=== PATIENT | female | born 1930 ===

== ENCOUNTER 2017-01-13 15:00 | Inpatient (IN) | payer MEDICARE, OTHER ==
[2017-01-13 15:00] VITALS: BMI 36.6
--- NOTE | 2017-01-13 15:13 | ED PDOC ---
HPI: General Adult Time Seen by Provider: 01/13/17 15:09 Chief Complaint (Nursing): Palpitations Chief Complaint (Provider): shortness of breath History Per: Patient History/Exam Limitations: no limitations Additional Complaint(s): 86yo female comes from Dr. Sharp's office w/ palpitations & shortness of breath. Patient has been complaining of symptoms for several days. Also reports 1-2 days of leg swelling and is feeling lightheaded today. No chest pain or fever. Past Medical History Reviewed: Historical Data, Nursing Documentation, Vital Signs Vital Signs: Last Vital Signs Temp 98.1 F 01/15/17 15:40 Pulse 89 01/15/17 15:40 Resp 20 01/15/17 15:40 BP 114/77 01/15/17 15:40 Pulse Ox 97 01/15/17 15:40 - Medical History PMH: Anxiety, Arthritis, Asthma (ON ADVAIR AT HOME ( UPDATED )), Atrial Fibrillation, Bronchitis, CAD, Cardia Arrhythmia (tachycardia), CHF, COPD, Dementia, Depression, HTN, Hyperlipidemia, Pneumonia, TIA Denies: Pulmonary Embolism (Helical ct done which excluded PE), Chronic Kidney Disease Other PMH: peripheral vascular disease, osteoarthritis, carotid artery disease - Surgical History Other surgeries: hysterctomy, oophorectomy - Family History Family History: States: Unknown Family Hx - Social History Current smoker - smoking cessation education provided: No - Home Medications Home Medications: Ambulatory Orders Medication Instructions Recorded Carboxymethylcellulose Sodium 1 drop EACHEYE QID 01/13/17 [Thera Tears] Olopatadine HCl [Pataday] 1 drop EACHEYE DAILY PRN 01/13/17 Valsartan [Diovan] 160 mg PO DAILY 01/13/17 - Allergies Allergies/Adverse Reactions: Allergies Allergy/AdvReac Type Severity Reaction Status Date / Time Penicillins Allergy RASH Verified 01/13/17 15:02 Review of Systems ROS Statement: Except As Marked, All Systems Reviewed And Found Negative Constitutional: Negative for: Fever Cardiovascular: Positive for: Palpitations, Light Headedness. Negative for: Chest Pain Respiratory: Positive for: Shortness of Breath Physical Exam - Reviewed Nursing Documentation Reviewed: Yes Vital Signs Reviewed: Yes - Physical Exam Appears: Positive for: Well, Non-toxic, No Acute Distress Head Exam: Positive for: ATRAUMATIC, NORMAL INSPECTION, NORMOCEPHALIC Skin: Positive for: Warm, Dry ENT: Positive for: Other (tacky mucous membranes) Cardiovascular/Chest: Positive for: Tachycardia (regular rhythm). Negative for : Murmur Respiratory: Positive for: Normal Breath Sounds. Negative for: Rales, Rhonchi, Wheezing, Respiratory Distress Gastrointestinal/Abdominal: Positive for: Soft. Negative for: Tenderness Extremity: Positive for: Other (1+ bilateral lower edema with kalli erythema and scaliness on skin of lower anterior tibia) - Laboratory Results Result Diagrams: 01/15/17 06:10 01/15/17 06:10 - ECG ECG: Positive for: Interpreted By Me, Viewed By Me ECG Rhythm: Positive for: Sinus Tachycardia, Nonspecific Changes (nonspecific ST abnormalities) O2 Sat by Pulse Oximetry: 99 Pulse Ox Interpretation: Normal - Critical Care Total Time (In Min): 30 Documented Critical Care: Time excludes all time spent performint seperately billable procedures Medical Decision Making Medical Decision Making: impression tachycardia differential includes acute coronary syndrome, anemia, CHF, pneumonia, PE, electrolyte abnormality, DVT. Plan: -EKG -US Bilateral Lower Extremities -CXR -Labs -Blood Culture -reassess Troponin, didimer and bnp elevated. DW Dr Sharp PMD and [employer] Supervisor. Requests Hospitalist admission and Dr Chavez for inpatient consult. Pt will be admitted for ACS, pending CT chest Pt's extensive med list provided by Dr Sharp reviewed with patient. She reports she only takes 2 medications every day. According to pt's pharmacy she has not filled several of her BP medications, including beta paramjit, for a few months. Lovenox ordered as she would benefit whether PE or ACS EXAM: CT Angiography Chest With Intravenous Contrast CLINICAL HISTORY: 86 years old, female; Signs and symptoms; Shortness of breath; Additional info: SOB tachycardia TECHNIQUE: Axial computed tomographic angiography images of the chest with intravenous contrast using pulmonary embolism protocol. This CT exam was performed using one or more of the following dose reduction techniques: automated exposure control, adjustment of the mA and/or kV according to patient size, and/or use of iterative reconstruction technique. MIP reconstructed images were created and reviewed. Coronal and sagittal reformatted images were created and reviewed. CONTRAST: 90 mL of [id number] administered intravenously. COMPARISON: No relevant prior studies available. FINDINGS: Limitations: Motion artifact - mild. Pulmonary arteries: Mild enlargement of pulmonary trunk. No definite pulmonary embolism. Aorta: Minimal atherosclerotic disease. No aortic aneurysm. Lungs: Minimal peripheral atelectasis/scarring. No consolidation. Pleural space: No significant effusion. No pneumothorax. Heart: Mild cardiomegaly. No significant pericardial effusion. Bones/joints: Degenerative changes of spine. No acute fracture. Soft tissues: Unremarkable. Lymph nodes: No pathologically enlarged lymph nodes. Upper abdomen: 12 x 7 cm cystic lesion with midline upper abdomen about the pancreas, incompletely imaged. IMPRESSION: 1. No definite CT evidence of pulmonary embolism. 2. Pancreatic lesion, indeterminate. Recommend MRI. 3. Incidental/non-acute findings are described above. DW Dr Jacome Hospitalist admitting for pt's PMD. Dr Chavez paged at 930p and 1020p. Dr Jacome made aware there has been no callback yet. Disposition - Clinical Impression Clinical Impression: NSTEMI (non-ST elevated myocardial infarction) Discussed With Dr.: Tarah Jacome Doctor Will See Patient In The: ED Counseled Patient/Family Regarding: Studies Performed, Diagnosis - Disposition Disposition Time: 15:15 Condition: GUARDED - Pt Status Changed To: Hospital Disposition Of: Inpatient - Admit Certification Admit to Inpatient:: After my assessment, the patient will require hospitalization for at least two midnights. This is because of the severity of symptoms shown, intensity of services needed, and/or the medical risk in this patient being treated as an outpatient. - POA Present On Arrival: None Additional Comments - Additional Comments Additional Comments: Scribe Attestation: Documented by Andrei Siddiqui acting as a scribe for Caren Kim MD. Provider Scribe Attestation: All medical record entries made by the Scribe were at my direction and personally dictated by me. I have reviewed the chart and agree that the record accurately reflects my personal performance of the history, physical exam, medical decision making, and the department course for this patient. I have also personally directed, reviewed, and agree with the discharge instructions and disposition.
--- NOTE | 2017-01-13 16:12 | RAD ---
HISTORY: Shortness of breath. Portable study 15:35. COMPARISON: No prior. FINDINGS: LUNGS: No active pulmonary disease. PLEURA: No significant pleural effusion identified, no pneumothorax apparent. CARDIOVASCULAR: Cardiomegaly. No evidence of acute, significant cardiovascular disease. OSSEOUS STRUCTURES: No significant abnormalities. VISUALIZED UPPER ABDOMEN: Normal. OTHER FINDINGS: None. IMPRESSION: No active disease.
[2017-01-13 16:37] LABS: BASO % 0.5 % (0.0-2.0); EOS # 0.6 K/uL (0.0-0.7); EOS % 6.4 % (0.0-4.0); HEMATOCRIT 39.7 % (34.0-47.0); LYMPH % 23.3 % (20.0-40.0); MEAN CELL VOLUME 83.2 fl (81.0-99.0); MEAN CORPUSCULAR HEMOGLOBIN 27.7 pg (27.0-31.0); MEAN CORPUSCULAR HGB CONC 33.3 g/dL (33.0-37.0); MEAN PLATELET VOLUME 10.2 fl (7.2-11.7); MONO # 0.7 K/uL (0.0-0.8); MONO % 8.4 % (0.0-10.0); NEUT # 5.3 K/uL (1.8-7.0); NEUT % 61.4 % (50.0-75.0); RED CELL DISTRIBUTION WIDTH 14.9 % (11.5-14.5); WHITE BLOOD COUNT 8.7 K/uL (4.8-10.8)
[2017-01-13 16:48] LABS: ALKALINE PHOSPHATASE 116 U/L (38-126); ALT/SGPT 29 U/L (9-52); AST/SGOT 29 U/L (14-36); BILIRUBIN,TOTAL 0.6 mg/dl (0.2-1.3); BLOOD UREA NITROGEN 17 mg/dl (7-17); CALCIUM 9.3 mg/dL (8.4-10.2); CARBON DIOXIDE 28 mmol/L (22-30); CHLORIDE 103 mmol/L (98-107); GFR AFRICAN-AMERICAN > 60; GLUCOSE,RANDOM 107 mg/dL (65-105); MAGNESIUM 1.9 MG/DL (1.6-2.3); PHOSPHOROUS 3.5 mg/dl (2.5-4.5); POTASSIUM 4.4 MMOL/L (3.6-5.0); SODIUM 136 mmol/l (132-148); TOTAL PROTEIN 6.8 G/DL (6.3-8.2)
[2017-01-13 17:11] LABS: PARTIAL THROMBOPLASTIN TIME 27.8 SECONDS (23.3-32.5)
[2017-01-13 17:16] LABS: THYROID STIMULATING HORMONE 2.65 mIU/ML (0.46-4.68)
--- NOTE | 2017-01-13 17:35 | US ---
Bilateral lower extremity ultrasound. Indication: Leg swelling, tachycardia Technique: Duplex ultrasound evaluation of the bilateral lower extremities Comparison: None available Findings: Bilateral lower extremity edema. There is normal flow, compressibility, and augmentation of the bilateral common femoral, femoral, and popliteal veins. The bilateral posterior tibial veins appear patent. 5.9 x 1.7 x 5.3 cm anechoic collection which contains internal septations within the right popliteal fossa, likely complex García's cyst. Incidental note is made of prominent nonspecific left inguinal lymph node with fatty hilum. Impression: Bilateral lower extremity edema. No evidence of deep venous thrombosis in the bilateral lower extremities. 5.9 x 1.7 x 5.3 cm anechoic collection which contains internal septations within the right popliteal fossa, likely complex García's cyst.
[2017-01-13] MEDS ORDERED: Enoxaparin 80 mg Syringe SC ONE (20:00)
[2017-01-13] MEDS ORDERED: Sodium Chloride 0.9% 50 ML IV ONE (20:02)
[2017-01-13] MEDS ORDERED: Iodixanol 320 MG/ML 100 ML BOTTLE IV ONE (20:02)
--- NOTE | 2017-01-13 21:28 | CT ---
EXAM: CT Angiography Chest With Intravenous Contrast CLINICAL HISTORY: 86 years old, female; Signs and symptoms; Shortness of breath; Additional info: SOB tachycardia TECHNIQUE: Axial computed tomographic angiography images of the chest with intravenous contrast using pulmonary embolism protocol. This CT exam was performed using one or more of the following dose reduction techniques: automated exposure control, adjustment of the mA and/or kV according to patient size, and/or use of iterative reconstruction technique. MIP reconstructed images were created and reviewed. Coronal and sagittal reformatted images were created and reviewed. CONTRAST: 90 mL of [id number] administered intravenously. COMPARISON: No relevant prior studies available. FINDINGS: Limitations: Motion artifact - mild. Pulmonary arteries: Mild enlargement of pulmonary trunk. No definite pulmonary embolism. Aorta: Minimal atherosclerotic disease. No aortic aneurysm. Lungs: Minimal peripheral atelectasis/scarring. No consolidation. Pleural space: No significant effusion. No pneumothorax. Heart: Mild cardiomegaly. No significant pericardial effusion. Bones/joints: Degenerative changes of spine. No acute fracture. Soft tissues: Unremarkable. Lymph nodes: No pathologically enlarged lymph nodes. Upper abdomen: 12 x 7 cm cystic lesion with midline upper abdomen about the pancreas, incompletely imaged. IMPRESSION: 1. No definite CT evidence of pulmonary embolism. 2. Pancreatic lesion, indeterminate. Recommend MRI. 3. Incidental/non-acute findings are described above.
--- NOTE | 2017-01-13 21:59 | CP.PCM.HP ---
History of Present Illness - History of Present Illness History of Present Illness: CC: shortness of breath HPI: 86 year old female with uncertain PMH as she is noncompliant with medications - patient pharmacy was called, and has not refilled medications in several months. Patient states over the course of 2 weeks she has been experiencing increasing moderate to severe shortness of breath at rest and on exertion with palpitations associated with chest pressure. Patient had not seen primary for a long period of time, and during her appointment today with Dr. Berry, patient was instructed to come to the emergency room for further evaluation and care. In ER: patient continues to have mild dyspnea at rest, TROPONIN x2 elevated at .44, .53, EKG with ST/T wave changes in lateral leads compared to 2015 study. PE was ruled out via CTA and Dopplers. Discussed with ER physician, Dr. Berry called, requested Dr. Chavez consulted for Cardiology. Service called three times. ROS per HPI all other systems reviewed and negative PMH: hypertension PSH: breast excision FH: Father, 2 Brothers passed from [place] SH: denies tobacco, ETOH, IVDU MEDS: noncompliant, patient pharmacy was called, and has not refilled medications in several months ALLERGIES: PCN EXAM: GEN: WDWN, alert, cooperative HEENT: NCAT, PERRL, EOMI NECK: supple, no JVD, no lymphadenopathy CARDIAC: +S1S2 RRR LUNG: CTAB No WRR ABD: SOFT NT ND BSX4 NO MASSES NO HSM EXT: +pedal pulses, equal strength, +edema NEURO: AAOx3 SKIN warm, dry PSYCH normal mood, normal affect LABS Most Recent Lab Values WBC 8.7 K/uL (4.8-10.8) 01/13/17 16:15 RBC 4.76 Mil/uL (3.80-5.20) 01/13/17 16:15 Hgb 13.2 g/dL (12.0-16.0) 01/13/17 16:15 Hct 39.7 % (34.0-47.0) 01/13/17 16:15 MCV 83.2 fl (81.0-99.0) 01/13/17 16:15 MCH 27.7 pg (27.0-31.0) 01/13/17 16:15 MCHC 33.3 g/dL (33.0-37.0) 01/13/17 16:15 RDW 14.9 % (11.5-14.5) H 01/13/17 16:15 Plt Count 149 K/uL (130-400) 01/13/17 16:15 MPV 10.2 fl (7.2-11.7) 01/13/17 16:15 Neut % (Auto) 61.4 % (50.0-75.0) 01/13/17 16:15 Lymph % (Auto) 23.3 % (20.0-40.0) 01/13/17 16:15 [place] % (Auto) 8.4 % (0.0-10.0) 01/13/17 16:15 Eos % (Auto) 6.4 % (0.0-4.0) H 01/13/17 16:15 Baso % (Auto) 0.5 % (0.0-2.0) 01/13/17 16:15 Neut # 5.3 K/uL (1.8-7.0) 01/13/17 16:15 Lymph # 2.0 K/uL (1.0-4.3) 01/13/17 16:15 [place] # 0.7 K/uL (0.0-0.8) 01/13/17 16:15 Eos # 0.6 K/uL (0.0-0.7) 01/13/17 16:15 Baso # 0.0 K/uL (0.0-0.2) 01/13/17 16:15 PT 10.6 SECONDS (9.6-11.2) 01/13/17 16:15 INR 1.02 (0.92-1.08) 01/13/17 16:15 APTT 27.8 SECONDS (23.3-32.5) 01/13/17 16:15 D-Dimer, Quantitative 1.36 mg/L FEU (0-0.50) H 01/13/17 16:15 Sodium 136 mmol/l (132-148) 01/13/17 16:15 Potassium 4.4 MMOL/L (3.6-5.0) 01/13/17 16:15 Chloride 103 mmol/L (98-107) 01/13/17 16:15 Carbon Dioxide 28 mmol/L (22-30) 01/13/17 16:15 Anion Gap 10 (10-20) 01/13/17 16:15 BUN 17 mg/dl (7-17) 01/13/17 16:15 Creatinine 0.7 mg/dL (0.7-1.2) 01/13/17 16:15 Est GFR ( Amer) > 60 01/13/17 16:15 Est GFR (Non-Af Amer) > 60 01/13/17 16:15 Random Glucose 107 mg/dL (65-105) H 01/13/17 16:15 Lactic Acid 0.9 MMOL/L (0.7-2.1) 01/13/17 16:15 Calcium 9.3 mg/dL (8.4-10.2) 01/13/17 16:15 Phosphorus 3.5 mg/dl (2.5-4.5) 01/13/17 16:15 Magnesium 1.9 MG/DL (1.6-2.3) 01/13/17 16:15 Total Bilirubin 0.6 mg/dl (0.2-1.3) 01/13/17 16:15 AST 29 U/L (14-36) 01/13/17 16:15 ALT 29 U/L (9-52) 01/13/17 16:15 Alkaline Phosphatase 116 U/L (38-126) 01/13/17 16:15 Troponin I x2 0.44 / 0.5370 ng/mL (0.00-0.120) H* 01/13/17 23:51 NT-Pro-B Natriuret Pep 1060 pg/ml (0-900) H 01/13/17 16:15 Total Protein 6.8 G/DL (6.3-8.2) 01/13/17 16:15 Albumin 3.5 g/dL (3.5-5.0) 01/13/17 16:15 Globulin 3.4 gm/dL (2.2-3.9) 01/13/17 16:15 Albumin/Globulin Ratio 1.0 (1.0-2.1) 01/13/17 16:15 TSH 3rd Generation 2.65 mIU/ML (0.46-4.68) 01/13/17 16:15 IMAGING STUDIES PE was ruled out via CTA and Dopplers. CXR no active disease EKG EKG with ST/T wave changes in lateral leads compared to 2015 study ACTIVE MEDICATIONS Olopatadine 0.1% Opht [Patanol 0.1% Opht Soln] 1 drop OU DAILY Aspirin [Aspirin Chewable] 81 mg PO DAILY Clopidogrel [Plavix] 75 mg PO DAILY Enoxaparin [Lovenox] 80 mg SC Q12 Anticoagulation Clinical Indication: ACS (STEMI, NSTEMI, UA) Metoprolol Succinate [Toprol XL] 50 mg PO DAILY Valsartan [Diovan] 160 mg PO DAILY ASSESSMENT AND PLAN 86 year old female with uncertain PMH as she is noncompliant with medications. Patient states over the course of 2 weeks she has been experiencing increasing moderate to severe shortness of breath at rest and on exertion with palpitations associated with chest pressure. Patient had not seen primary for a long period of time, and during her appointment today with Dr. Berry, patient was instructed to come to the emergency room for further evaluation and care. In ER: patient continues to have mild dyspnea at rest, TROPONIN x2 elevated at .44, .53, EKG with ST/T wave changes in lateral leads compared to 2015 study. PE was ruled out via CTA and Dopplers. Pancreatic lesion found incidentally, follow up MRI recommended. Discussed with ER physician, Dr. Berry was called by ER, requested Dr. Chavez consulted for Cardiology. Service called three times. NSTEMI ROSINA score = 3 Troponin 0.44, 0.52, last troponin at [address]/Twave changes from last study in 2014 Lovenox 80 mg q12 ASA, Plavix, Toprol XL 50mg Repeat EKG at 0600 for reevaluation Lipid panel NPO TSH 2.[address] Chavez, 2 messages left by ER. HTN stable cont patient Diovan 160 mg po daily Pancreatic Lesion incidental finding on CT MRI as outpatient LV hypertrophy with Grade II pseudonormal filling mild to mod AR, with lower extremity edema BNP appx 1K one dose of lasix VTE ppx on full dose lovenox Present on Admission - Present on Admission Any Indicators Present on Admission: No Past Patient History - Past Medical History & Family History Past Medical History?: Yes - Past Social History Smoking Status: Never Smoked - CARDIAC Hx Atrial Fibrillation: Yes Hx Cardia Arrhythmia: Yes (tachycardia) Hx Congestive Heart Failure: Yes Hx Hypertension: Yes - PULMONARY Hx Asthma: Yes (ON ADVAIR AT HOME ( UPDATED )) Hx Bronchitis: Yes Hx Chronic Obstructive Pulmonary Disease (COPD): Yes Hx Pneumonia: Yes Hx Pulmonary Embolism: No (Helical ct done which excluded PE) - NEUROLOGICAL Hx Dementia: Yes Hx Transient Ischemic Attacks (TIA): Yes - HEENT Hx Cataracts: Yes Hx Glaucoma: Yes - RENAL Hx Chronic Kidney Disease: No - ENDOCRINE/METABOLIC Hx Endocrine Disorders: No - HEMATOLOGICAL/ONCOLOGICAL Hx Blood Disorders: No - INTEGUMENTARY Hx Dermatological Problems: No - MUSCULOSKELETAL/RHEUMATOLOGICAL Hx Arthritis: Yes - GASTROINTESTINAL Hx Gastrointestinal Disorders: No Other/Comment: hernia - GENITOURINARY/GYNECOLOGICAL Hx Genitourinary Disorders: No - PSYCHIATRIC Hx Anxiety: Yes Hx Depression: Yes - ANESTHESIA Hx Anesthesia: No Meds Allergies/Adverse Reactions: Allergies Allergy/AdvReac Type Severity Reaction Status Date / Time Penicillins Allergy RASH Verified 01/13/17 15:02 Results - Vital Signs Recent Vital Signs: Last Vital Signs Temp 98.9 F 01/13/17 21:07 Pulse 103 H 01/13/17 21:07 Resp 15 01/13/17 21:07 BP 134/82 01/13/17 21:07 Pulse Ox 99 01/13/17 21:42 - Labs Result Diagrams: 01/13/17 16:15 01/13/17 16:15
[2017-01-13] MEDS ORDERED: OLOPATADINE HCL EACHEYE PRN (22:47)
[2017-01-14] MEDS: Olopatadine 0.1% Opht SOLN OU SCH ×2 (02:30→09:15)
[2017-01-14 07:07] LABS: HEMATOCRIT 41.7 % (34.0-47.0); MEAN CELL VOLUME 83.5 fl (81.0-99.0); MEAN CORPUSCULAR HEMOGLOBIN 27.5 pg (27.0-31.0); MEAN CORPUSCULAR HGB CONC 32.9 g/dL (33.0-37.0); RED CELL DISTRIBUTION WIDTH 14.6 % (11.5-14.5); WHITE BLOOD COUNT 8.6 K/uL (4.8-10.8)
[2017-01-14 07:27] LABS: BLOOD UREA NITROGEN 17 mg/dl (7-17); CALCIUM 9.2 mg/dL (8.4-10.2); CARBON DIOXIDE 26 mmol/L (22-30); CHLORIDE 103 mmol/L (98-107); CHOLESTEROL 151 mg/dL (0-199); GFR AFRICAN-AMERICAN > 60; GLUCOSE,RANDOM 98 mg/dL (65-105); POTASSIUM 3.9 MMOL/L (3.6-5.0); SODIUM 141 mmol/l (132-148)
--- NOTE | 2017-01-14 08:23 | CARD ---
APPROVED REPORT EKG Measurement Heart [id number] [place] 206P [id number] <Conclusion> Sinus tachycardia Left anterior fascicular block Moderate voltage criteria for LVH, may be normal variant Nonspecific ST and T wave abnormality Abnormal ECG
[2017-01-14] MEDS ORDERED: Metoprolol Succinate 50 mg XL Tab PO SCH ×2 (09:00)
[2017-01-14] MEDS ORDERED: Enoxaparin 80 mg Syringe SC SCH (09:00)
[2017-01-14] MEDS: Enoxaparin 80 mg Syringe SC SCH ×2 (09:14→21:53)
--- NOTE | 2017-01-14 10:03 | CP.PCM.PN ---
Subjective - Date & Time of Evaluation Date of Evaluation: 01/14/17 Time of Evaluation: 09:30 - Subjective Subjective: Denies CP at present no SOB no palpitation no abd pain no N/V no diaphoresis no fever Objective - Vital Signs/Intake and Output Vital Signs (last 24 hours): Temp Pulse Resp BP Pulse Ox 97.6 F 110 H 18 126/77 97 01/14/17 08:18 01/14/17 09:14 01/14/17 08:18 01/14/17 09:14 01/14/17 08:18 - Medications Medications: Current Medications Aspirin (Aspirin Chewable) 81 mg PO DAILY [facility] Last Admin: 01/14/17 09:14 Dose: 81 mg Atorvastatin Calcium (Lipitor) 20 mg PO DAILY [facility] Last Admin: 01/14/17 09:15 Dose: 20 mg Clopidogrel Bisulfate (Plavix) 75 mg PO DAILY [facility] Last Admin: 01/14/17 09:14 Dose: 75 mg Enoxaparin Sodium (Lovenox) 80 mg SC Q12 [facility] PRN Reason: Protocol Last Admin: 01/14/17 09:14 Dose: 80 mg Famotidine (Pepcid) 20 mg PO BID [facility] Last Admin: 01/14/17 09:19 Dose: 20 mg Metoprolol Succinate (Toprol Xl) 50 mg PO DAILY [facility] Last Admin: 01/14/17 09:14 Dose: 50 mg Olopatadine HCl (Patanol 0.1% Oph Soln) 1 drop OU DAILY [facility] Last Admin: 01/14/17 09:15 Dose: 1 drop Valsartan (Diovan) 160 mg PO DAILY [facility] Last Admin: 01/14/17 09:15 Dose: 160 mg - Labs Labs: 01/14/17 05:55 01/14/17 05:55 PT 10.6 SECONDS (9.6-11.2) 01/13/17 16:15 INR 1.02 (0.92-1.08) 01/13/17 16:15 APTT 27.8 SECONDS (23.3-32.5) 01/13/17 16:15 - Constitutional Appears: No Acute Distress, Chronically Ill - Head Exam Head Exam: NORMAL INSPECTION, NORMOCEPHALIC - Eye Exam Eye Exam: EOMI, Normal appearance Pupil Exam: NORMAL ACCOMODATION - ENT Exam ENT Exam: Mucous Membranes Moist, Normal External Ear Exam - Neck Exam Neck Exam: Full ROM. absent: Meningismus - Respiratory Exam Respiratory Exam: NORMAL BREATHING PATTERN. absent: Respiratory Distress - Cardiovascular Exam Cardiovascular Exam: Tachycardia, REGULAR RHYTHM, +S1, +S2 - GI/Abdominal Exam GI & Abdominal Exam: Soft, Normal Bowel Sounds. absent: Tenderness - Extremities Exam Extremities Exam: Normal Capillary Refill, Pedal Edema (trace edema). absent: Calf Tenderness, Full ROM - Back Exam Back Exam: Full ROM, NORMAL INSPECTION. absent: CVA tenderness (L), CVA tenderness (R), paraspinal tenderness, vertebral tenderness - Neurological Exam Neurological Exam: Alert, Awake, CN II-XII Intact, Oriented x3 - Psychiatric Exam Psychiatric exam: Normal Affect, Normal Mood - Skin Skin Exam: Dry, Normal Color, Warm Assessment and Plan (1) NSTEMI (non-ST elevated myocardial infarction) Status: Acute (2) HTN (hypertension) Status: Chronic (3) Pancreatic lesion Status: Chronic (4) Prophylactic measure Status: Acute - Assessment and Plan (Free Text) Assessment: 86 y/o lady with hx of HTN, Pancreatic Cyst, noncompliant with her medications , came in as advised by her PMD : Dr Sharp, bec of chest pressure , palpitation and SOB. EKG showed nonspecific ST T changes, Troponin x 3+. DDimer was sl elevated so CTA of chest was done - negative for PE. 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
--- NOTE | 2017-01-14 10:30 | CARD ---
APPROVED REPORT EXAM: Two-dimensional and M-mode echocardiogram with Doppler and color Doppler. Other Information Quality : GoodRhythm : Tachycardia INDICATION Non STEMI 2D DIMENSIONS IVSd1.27 (0.7-1.1cm)LVDd4.34 (3.9-5.9cm) LVOT Diameter2.54 (1.8-2.4cm)PWd0.91 (0.7-1.1cm) IVSs1.58 (0.8-1.2cm)LVDs3.17 (2.5-4.0cm) FS (%) 27.1 %PWs1.42 (0.8-1.2cm) M-Mode DIMENSIONS Left Atrium (MM)3.78 (2.5-4.0cm)IVSd1.47 (0.7-1.1cm) Aortic Root3.09 (2.2-3.7cm)LVDd4.69 (4.0-5.6cm) Aortic Cusp Exc.1.38 (1.5-2.0cm)PWd1.00 (0.7-1.1cm) IVSs1.94 cmFS (%) 35 % LVDs3.06 (2.0-3.8cm)PWs1.56 cm Mitral Valve E/A ratio0.0 TDI E/Lateral E'0.0E/Medial E'0.0 Tricuspid Valve TR Peak [id number] [id number] Peak Gr.24mmHg [id number] LEFT VENTRICLE The left ventricle is normal size. There is borderline concentric left ventricular hypertrophy. Left ventricle systolic function is normal. The Ejection Fraction is 60-65%. There is normal LV segmental wall motion. Pt had A Fib. RIGHT VENTRICLE The right ventricle is normal size. There is normal right ventricular wall thickness. The right ventricular systolic function is normal. ATRIA The left atrium is mildly dilated. The right atrium size is normal. AORTIC VALVE The aortic valve is mildly sclerotic and poorly visualised. There is mild to moderate aortic regurgitation. There is no aortic valvular stenosis. MITRAL VALVE Mitral annular calcification is mild. There is no evidence of mitral valve prolapse. There is no mitral valve stenosis. Mitral regurgitation is mild to moderate. TRICUSPID VALVE The tricuspid valve is normal in structure. There is mild to moderate tricuspid regurgitation. Right ventricular systolic pressure is estimated at 34 mmHg. There is mild pulmonary hypertension. PULMONIC VALVE The pulmonary valve is normal in structure and function. There is no pulmonic valvular regurgitation. GREAT VESSELS The aortic root is normal in size. Due to poor image quality, the IVC could not be assessed. PERICARDIAL EFFUSION The pericardium appears normal. <Conclusion> Poor echo window with suboptimal images Pt displayed persistent tachycardia with heart rates between 110 and 120 BPM There is mild to moderate aortic regurgitation. Mitral regurgitation is mild to moderate. The left ventricle is normal size. There is borderline concentric left ventricular hypertrophy. There is normal LV segmental wall motion. Left ventricle systolic function is normal. The Ejection Fraction is 60-65%.
--- NOTE | 2017-01-14 10:57 | CP.PCM.CON ---
History of Present Illness - History of Present Illness History of Present Illness: 86 year old female admitted with tachycardia, lateral st-t changes which suggest ischemia and + troponin I c/w NSTEMI. Pt of received first notice of patient by this am. I received no calls from the Emergency room regarding this patient. Irregardless, pt underwent CT to R/O PE. Echocardiogram which revealed Normal LVEF and no new regional wall motion abnormalities. Pt started on antiplatelet tx, anticoagulation , beta paramjit and continued ARB. Pt has been non-compliant with medications. She reports some shortness of breath and an episode several weeks ago suggested of ischemia. Currently, chest pain free at rest anc comfortable. Past Patient History - Past Medical History & Family History Past Medical History?: Yes - Past Social History Smoking Status: Never Smoked - CARDIAC Hx Atrial Fibrillation: Yes Hx Cardia Arrhythmia: Yes (tachycardia) Hx Congestive Heart Failure: Yes Hx Hypertension: Yes - PULMONARY Hx Asthma: Yes (ON ADVAIR AT HOME ( UPDATED )) Hx Bronchitis: Yes Hx Chronic Obstructive Pulmonary Disease (COPD): Yes Hx Pneumonia: Yes Hx Pulmonary Embolism: No (Helical ct done which excluded PE) - NEUROLOGICAL Hx Dementia: Yes Hx Transient Ischemic Attacks (TIA): Yes - HEENT Hx Cataracts: Yes Hx Glaucoma: Yes - RENAL Hx Chronic Kidney Disease: No - ENDOCRINE/METABOLIC Hx Endocrine Disorders: No - HEMATOLOGICAL/ONCOLOGICAL Hx Blood Disorders: No - INTEGUMENTARY Hx Dermatological Problems: No - MUSCULOSKELETAL/RHEUMATOLOGICAL Hx Arthritis: Yes - GASTROINTESTINAL Hx Gastrointestinal Disorders: No Other/Comment: hernia - GENITOURINARY/GYNECOLOGICAL Hx Genitourinary Disorders: No - PSYCHIATRIC Hx Anxiety: Yes Hx Depression: Yes - ANESTHESIA Hx Anesthesia: No Meds Allergies/Adverse Reactions: Allergies Allergy/AdvReac Type Severity Reaction Status Date / Time Penicillins Allergy RASH Verified 01/13/17 15:02 - Medications Medications: Current Medications Aspirin (Aspirin Chewable) 81 mg PO DAILY [facility] Last Admin: 01/14/17 09:14 Dose: 81 mg Atorvastatin Calcium (Lipitor) 20 mg PO DAILY [facility] Last Admin: 01/14/17 09:15 Dose: 20 mg Clopidogrel Bisulfate (Plavix) 75 mg PO DAILY [facility] Last Admin: 01/14/17 09:14 Dose: 75 mg Enoxaparin Sodium (Lovenox) 80 mg SC Q12 [facility] PRN Reason: Protocol Last Admin: 01/14/17 09:14 Dose: 80 mg Famotidine (Pepcid) 20 mg PO BID [facility] Last Admin: 01/14/17 09:19 Dose: 20 mg Metoprolol Succinate (Toprol Xl) 50 mg PO DAILY [facility] Last Admin: 01/14/17 09:14 Dose: 50 mg Olopatadine HCl (Patanol 0.1% Opht Soln) 1 drop OU DAILY [facility] Last Admin: 01/14/17 09:15 Dose: 1 drop Valsartan (Diovan) 160 mg PO DAILY [facility] Last Admin: 01/14/17 09:15 Dose: 160 mg Physical Exam - Constitutional Appears: Well - Head Exam Head Exam: NORMAL INSPECTION - Neck Exam Neck exam: Positive for: Normal Inspection - Respiratory Exam Respiratory Exam: Clear to Auscultation Bilateral - Cardiovascular Exam Cardiovascular Exam: REGULAR RHYTHM - Extremities Exam Extremities exam: Positive for: pedal edema Results - Vital Signs Recent Vital Signs: Last Vital Signs Temp 97.6 F 01/14/17 08:18 Pulse 110 H 01/14/17 09:14 Resp 18 01/14/17 08:18 BP 126/77 01/14/17 09:14 Pulse Ox 97 01/14/17 08:18 - Labs Result Diagrams: 01/14/17 05:55 01/14/17 05:55 Labs: Laboratory Results - last 24 hr 01/13/17 01/14/17 01/14/17 23:51 05:55 05:55 WBC 8.6 RBC 4.99 Hgb 13.7 Hct 41.7 MCV 83.5 MCH 27.5 MCHC 32.9 L RDW 14.6 H Plt Count 171 Sodium 141 Potassium 3.9 Chloride 103 Carbon Dioxide 26 Anion Gap 16 BUN 17 Creatinine 0.8 Est GFR ( Amer) > 60 Est GFR (Non-Af Amer) > 60 Random Glucose 98 Calcium 9.2 Troponin I 0.5370 H* 0.4960 H* Triglycerides 108 Cholesterol 151 LDL Cholesterol Direct 80 HDL Cholesterol 44 Assessment & Plan - Assessment and Plan (Free Text) Assessment: 86 year old female with NSTEMI presentation typical for myocardial infarction in the elderly. Pt on appropriate medical therapy with beta paramjit, antiplatelet , antithrombin and bp control. LV function is normal as per echo. Would attempt trial of medical therapy and observe on Telemetry given her advanced age . If pt has recurrent symptoms suggestive of ongoing ischemia she may be a candidate for cardiac catherization. Plan: Observe on medical therapy
[2017-01-15 07:21] LABS: HEMATOCRIT 43.6 % (34.0-47.0); MEAN CELL VOLUME 83.7 fl (81.0-99.0); MEAN CORPUSCULAR HEMOGLOBIN 27.4 pg (27.0-31.0); MEAN CORPUSCULAR HGB CONC 32.7 g/dL (33.0-37.0); RED CELL DISTRIBUTION WIDTH 14.9 % (11.5-14.5); WHITE BLOOD COUNT 9.2 K/uL (4.8-10.8)
[2017-01-15 07:32] LABS: BLOOD UREA NITROGEN 23 mg/dl (7-17); CALCIUM 9.2 mg/dL (8.4-10.2); CARBON DIOXIDE 24 mmol/L (22-30); CHLORIDE 105 mmol/L (98-107); GFR AFRICAN-AMERICAN > 60; GLUCOSE,RANDOM 110 mg/dL (65-105); POTASSIUM 4.2 MMOL/L (3.6-5.0); SODIUM 139 mmol/l (132-148)
[2017-01-15] MEDS ORDERED: Levalbuterol 1.25 MG/3 ML Inhal Soln UD INH ONE (08:30)
--- NOTE | 2017-01-15 08:59 | CP.PCM.PN ---
Subjective - Date & Time of Evaluation Date of Evaluation: 01/15/17 Time of Evaluation: 08:45 - Subjective Subjective: I noted that on exam of pt , her HR was sl tachycardic and irregular- reviewed Tele monitor - shows some irregula but rhythm is unclear - EKG ordered Pt denies palpitation no CP no SOB has sl dry cough today no abd pain no N/V No fever Objective - Vital Signs/Intake and Output Vital Signs (last 24 hours): Temp Pulse Resp BP Pulse Ox 97.9 F 106 H 18 118/76 99 01/15/17 08:10 01/15/17 08:10 01/15/17 08:10 01/15/17 08:10 01/15/17 08:10 - Medications Medications: Current Medications Aspirin (Aspirin Chewable) 81 mg PO DAILY [facility] Last Admin: 01/14/17 09:14 Dose: 81 mg Atorvastatin Calcium (Lipitor) 20 mg PO DAILY [facility] Last Admin: 01/14/17 09:15 Dose: 20 mg Clopidogrel Bisulfate (Plavix) 75 mg PO DAILY [facility] Last Admin: 01/14/17 09:14 Dose: 75 mg Enoxaparin Sodium (Lovenox) 80 mg SC Q12 [facility] PRN Reason: Protocol Last Admin: 01/14/17 21:53 Dose: 80 mg Famotidine (Pepcid) 20 mg PO BID [facility] Last Admin: 01/14/17 16:13 Dose: 20 mg Metoprolol Succinate (Toprol Xl) 100 mg PO DAILY [facility] Olopatadine HCl (Patanol 0.1% Opht Soln) 1 drop OU DAILY [facility] Last Admin: 01/14/17 09:15 Dose: 1 drop Valsartan (Diovan) 160 mg PO DAILY [facility] Last Admin: 01/14/17 09:15 Dose: 160 mg - Labs Labs: 01/15/17 06:10 01/15/17 06:10 PT 10.6 SECONDS (9.6-11.2) 01/13/17 16:15 INR 1.02 (0.92-1.08) 01/13/17 16:15 APTT 27.8 SECONDS (23.3-32.5) 01/13/17 16:15 - Constitutional Appears: No Acute Distress, Chronically Ill - Head Exam Head Exam: NORMAL INSPECTION, NORMOCEPHALIC - Eye Exam Eye Exam: EOMI, Normal appearance Pupil Exam: NORMAL ACCOMMODATION - ENT Exam ENT Exam: Mucous Membranes Moist, Normal External Ear Exam - Neck Exam Neck Exam: Full ROM. absent: Meningismus - Respiratory Exam Respiratory Exam: NORMAL BREATHING PATTERN. absent: Respiratory Distress - Cardiovascular Exam Cardiovascular Exam: Tachycardia, IRREGULAR RHYTHM, +S1, +S2 - GI/Abdominal Exam GI & Abdominal Exam: Soft, Normal Bowel Sounds. absent: Tenderness umbilical hernia - Extremities Exam Extremities Exam: Normal Capillary Refill, Pedal Edema (trace edema). absent: Calf Tenderness, Full ROM some stasis skin changes - Back Exam Back Exam: Full ROM, NORMAL INSPECTION. absent: CVA tenderness (L), CVA tenderness (R), paraspinal tenderness, vertebral tenderness - Neurological Exam Neurological Exam: Alert, Awake, CN II-XII Intact, Oriented x3 - Psychiatric Exam Psychiatric exam: Normal Affect, Normal Mood - Skin Skin Exam: Dry, Normal Color, Warm Assessment and Plan (1) NSTEMI (non-ST elevated myocardial infarction) Status: Acute (2) HTN (hypertension) Status: Chronic (3) Pancreatic lesion Status: Chronic (4) Prophylactic measure Status: Acute - Assessment and Plan (Free Text) Assessment: 86 y/o lady with hx of HTN, Pancreatic Cyst, noncompliant with her medications , came in as advised by her PMD : Dr Sharp, bec of chest pressure , palpitation and SOB. EKG showed nonspecific ST T changes, Troponin x 3+. DDimer was sl elevated so CTA of chest was done - negative for PE. (1) NSTEMI (non-ST elevated myocardial infarction) Status: Acute Troponin elevation x [address] T changes on EKG Chest pain resolved cont ASA, Plavix, therapeutic dose of Lovenox, Statin, BB and ARB ECHO:normal wall motion and LV function, EF=60%, mild to mod AI,and MR Cardiology consulted - DR Chavez Discussed possible need for cardiac cath - Pt refused any aggressive treatment and just wants medical treatment (2) HTN (hypertension) Status: Chronic cont Diovan Increased Metoprolol dose to Toprol 100mg daily due to tachy (3) Pancreatic lesion - incidental finding on CT of chest Status: Chronic as per pt , this is chronic - 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
[2017-01-15] MEDS: Metoprolol Succinate 100 mg XL Tab PO SCH (09:38)
[2017-01-15] MEDS: Olopatadine 0.1% Opht SOLN OU SCH (09:39)
[2017-01-15] MEDS: Enoxaparin 80 mg Syringe SC SCH ×2 (09:40→21:10)
--- NOTE | 2017-01-15 09:53 | CARD ---
APPROVED REPORT EKG Measurement Heart [id number] <Conclusion> Atrial flutter with variable AV block Left axis deviation Pulmonary disease pattern Abnormal ECG
--- NOTE | 2017-01-15 12:19 | CP.PCM.PN ---
Subjective - Date & Time of Evaluation Date of Evaluation: 01/15/17 Time of Evaluation: 12:17 - Subjective Subjective: No chest pain. Mild Sob with ambulation. Telemetry reveals atrial flutter with variable block. NSTEMI may be rate related. Objective - Vital Signs/Intake and Output Vital Signs (last 24 hours): Temp Pulse Resp BP Pulse Ox 98.2 F 106 H 18 110/66 97 01/15/17 12:00 01/15/17 12:00 01/15/17 12:00 01/15/17 12:00 01/15/17 12:00 - Medications Medications: Current Medications Aspirin (Aspirin Chewable) 81 mg PO DAILY [facility] Last Admin: 01/15/17 09:39 Dose: 81 mg Atorvastatin Calcium (Lipitor) 20 mg PO DAILY [facility] Last Admin: 01/15/17 09:38 Dose: 20 mg Clopidogrel Bisulfate (Plavix) 75 mg PO DAILY [facility] Last Admin: 01/15/17 09:39 Dose: 75 mg Docusate Sodium (Colace) 100 mg PO BID [facility] Last Admin: 01/15/17 09:40 Dose: Not Given Enoxaparin Sodium (Lovenox) 80 mg SC Q12 [facility] PRN Reason: Protocol Last Admin: 01/15/17 09:40 Dose: 80 mg Famotidine (Pepcid) 20 mg PO BID [facility] Last Admin: 01/15/17 09:38 Dose: 20 mg Metoprolol Succinate (Toprol Xl) 100 mg PO DAILY [facility] Last Admin: 01/15/17 09:38 Dose: 100 mg Olopatadine HCl (Patanol 0.1% Opht Soln) 1 drop OU DAILY [facility] Last Admin: 01/15/17 09:39 Dose: 1 drop Valsartan (Diovan) 160 mg PO DAILY [facility] Last Admin: 01/15/17 09:38 Dose: 160 mg - Labs Labs: 01/15/17 06:10 01/15/17 06:10 PT 10.6 SECONDS (9.6-11.2) 01/13/17 16:15 INR 1.02 (0.92-1.08) 01/13/17 16:15 APTT 27.8 SECONDS (23.3-32.5) 01/13/17 16:15 - Respiratory Exam Respiratory Exam: Clear to Ausculation Bilateral - Cardiovascular Exam Cardiovascular Exam: REGULAR RHYTHM - Extremities Exam Extremities Exam: Normal Inspection Assessment and Plan - Assessment and Plan (Free Text) Assessment: Start Amiodarone 200mg qd for possible conversion to NSR Plan: Assess Response to Amiodarone over next 48 hrs Will Reassess Wednesday
[2017-01-15] MEDS ORDERED: guaiFENesin DM 200 mg-20 mg/10 ml UD PO ONE (16:55)
[2017-01-16 07:06] LABS: HEMATOCRIT 38.2 % (34.0-47.0); MEAN CELL VOLUME 83.1 fl (81.0-99.0); MEAN CORPUSCULAR HEMOGLOBIN 27.6 pg (27.0-31.0); MEAN CORPUSCULAR HGB CONC 33.3 g/dL (33.0-37.0); RED CELL DISTRIBUTION WIDTH 14.7 % (11.5-14.5); WHITE BLOOD COUNT 7.4 K/uL (4.8-10.8)
--- NOTE | 2017-01-16 07:27 | CP.PCM.PN ---
Subjective - Date & Time of Evaluation Date of Evaluation: 01/16/17 Time of Evaluation: 09:00 - Subjective Subjective: Patient seen and examined bedside. Feeling a little sad today since her family is not here with her. Denies any CP, SOB, palpitations. No acute issues overnight Objective - Vital Signs/Intake and Output Vital Signs (last 24 hours): Temp Pulse Resp BP Pulse Ox 97.9 F 98 H 20 114/70 98 01/16/17 04:57 01/16/17 04:57 01/16/17 04:57 01/16/17 04:57 01/16/17 04:57 - Medications Medications: Current Medications Amiodarone HCl (Cordarone) 200 mg PO DAILY [facility] Last Admin: 01/15/17 13:49 Dose: 200 mg Aspirin (Aspirin Chewable) 81 mg PO DAILY [facility] Last Admin: 01/15/17 09:39 Dose: 81 mg Atorvastatin Calcium (Lipitor) 20 mg PO DAILY [facility] Last Admin: 01/15/17 09:38 Dose: 20 mg Clopidogrel Bisulfate (Plavix) 75 mg PO DAILY [facility] Last Admin: 01/15/17 09:39 Dose: 75 mg Docusate Sodium (Colace) 100 mg PO BID [facility] Last Admin: 01/15/17 17:36 Dose: 100 mg Enoxaparin Sodium (Lovenox) 80 mg SC Q12 [facility] PRN Reason: Protocol Last Admin: 01/15/17 21:10 Dose: 80 mg Famotidine (Pepcid) 20 mg PO BID [facility] Last Admin: 01/15/17 17:35 Dose: 20 mg Metoprolol Succinate (Toprol Xl) 100 mg PO DAILY [facility] Last Admin: 01/15/17 09:38 Dose: 100 mg Olopatadine HCl (Patanol 0.1% Opht Soln) 1 drop OU DAILY [facility] Last Admin: 01/15/17 09:39 Dose: 1 drop Valsartan (Diovan) 160 mg PO DAILY [facility] Last Admin: 01/15/17 09:38 Dose: 160 mg - Labs Labs: 01/16/17 05:00 01/15/17 06:10 PT 10.6 SECONDS (9.6-11.2) 01/13/17 16:15 INR 1.02 (0.92-1.08) 01/13/17 16:15 APTT 27.8 SECONDS (23.3-32.5) 01/13/17 16:15 - Constitutional Appears: Non-toxic, No Acute Distress - Head Exam Head Exam: ATRAUMATIC, NORMAL INSPECTION, NORMOCEPHALIC - Eye Exam Eye Exam: EOMI, Normal appearance, PERRL Pupil Exam: NORMAL ACCOMODATION, PERRL - ENT Exam ENT Exam: Mucous Membranes Moist, Normal Exam - Neck Exam Neck Exam: Full ROM, Normal Inspection - Respiratory Exam Respiratory Exam: Clear to Ausculation Bilateral. absent: Rhonchi, Wheezes, Respiratory Distress - Cardiovascular Exam Cardiovascular Exam: Irregular Rhythm, +S1, +S2. absent: JVD - GI/Abdominal Exam GI & Abdominal Exam: Soft, Normal Bowel Sounds. absent: Distended, Guarding, Tenderness, Rebound - Rectal Exam Rectal Exam: Deferred - Extremities Exam Extremities Exam: Full ROM, Normal Capillary Refill, Normal Inspection. absent : Calf Tenderness, Pedal Edema - Back Exam Back Exam: NORMAL INSPECTION - Neurological Exam Neurological Exam: Alert, Awake, CN II-XII Intact, Oriented x3 - Psychiatric Exam Psychiatric exam: Normal Affect - Skin Skin Exam: Dry, Normal Color, Warm Assessment and Plan - Assessment and Plan (Free Text) Assessment: 86 y/o lady with hx of HTN, Pancreatic Cyst, noncompliant with her medications , came in as advised by her PMD Dr Sharp, because of chest pressure , palpitation and SOB. EKG showed nonspecific ST T changes and Troponin was elevated . patient admitted with possible diagnosis of NSTEMi and cardiology was consulted that recommended medical management. Yesterday tele monitor showed aflutter with variable block and patient was started on amiodarone Po . 1. NSTEMI (non-ST elevated myocardial infarction) Acute Troponins were elevated and now trending down 0.[address] T changes on EKG Chest pain resolved cont ASA, Plavix, therapeutic dose of Lovenox, Statin, BB and ARB ECHO:normal wall motion and LV function, EF=60%, mild to mod AI,and MR Cardiology consulted - DR Chavez Discussed possible need for cardiac cath but patient refused any aggressive treatment and just wants medical treatment 2. AFlutter with variable block better controlled cardiology following Denies any CP, palpitations, SOB Continue amiodarone 200 mg po Qd and toprol on lovenox therapeutic 3. 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 Umbilical Hernia, chronic no abd pain nor tenderness 6. Prophylactic measure on LOvenox Pepcid
[2017-01-16 08:04] LABS: BLOOD UREA NITROGEN 20 mg/dl (7-17); CALCIUM 8.6 mg/dL (8.4-10.2); CARBON DIOXIDE 24 mmol/L (22-30); CHLORIDE 107 mmol/L (98-107); GFR AFRICAN-AMERICAN > 60; GLUCOSE,RANDOM 98 mg/dL (65-105); POTASSIUM 3.8 MMOL/L (3.6-5.0); SODIUM 139 mmol/l (132-148)
[2017-01-16] MEDS: Metoprolol Succinate 100 mg XL Tab PO SCH (09:50)
[2017-01-16] MEDS: Olopatadine 0.1% Opht SOLN OU SCH (09:51)
[2017-01-16] MEDS: Enoxaparin 80 mg Syringe SC SCH ×2 (09:51→21:51)
--- NOTE | 2017-01-17 07:31 | CP.PCM.PN ---
Subjective - Date & Time of Evaluation Date of Evaluation: 01/17/17 Time of Evaluation: 09:30 - Subjective Subjective: Patient seen and examined bedside. Sitting by the side of the bed, comfortable. denies any SOB, CP, palpitations. Feeling better.No acute issues overnight. Objective - Vital Signs/Intake and Output Vital Signs (last 24 hours): Temp Pulse Resp BP Pulse Ox 97.5 F L 98 H 20 131/80 97 01/17/17 05:38 01/17/17 05:38 01/17/17 05:38 01/17/17 05:38 01/17/17 05:38 - Medications Medications: Current Medications Amiodarone HCl (Cordarone) 200 mg PO DAILY [facility] Last Admin: 01/16/17 09:51 Dose: 200 mg Aspirin (Aspirin Chewable) 81 mg PO DAILY [facility] Last Admin: 01/16/17 09:49 Dose: 81 mg Atorvastatin Calcium (Lipitor) 20 mg PO DAILY [facility] Last Admin: 01/16/17 09:49 Dose: 20 mg Clopidogrel Bisulfate (Plavix) 75 mg PO DAILY [facility] Last Admin: 01/16/17 09:51 Dose: 75 mg Docusate Sodium (Colace) 100 mg PO BID [facility] Last Admin: 01/16/17 17:14 Dose: 100 mg Enoxaparin Sodium (Lovenox) 80 mg SC Q12 [facility] PRN Reason: Protocol Last Admin: 01/16/17 21:51 Dose: 80 mg Famotidine (Pepcid) 20 mg PO BID [facility] Last Admin: 01/16/17 17:14 Dose: 20 mg Metoprolol Succinate (Toprol Xl) 100 mg PO DAILY [facility] Last Admin: 01/16/17 09:50 Dose: 100 mg Olopatadine HCl (Patanol 0.1% Opht Soln) 1 drop OU DAILY [facility] Last Admin: 01/16/17 09:51 Dose: 1 drop Valsartan (Diovan) 160 mg PO DAILY [facility] Last Admin: 01/16/17 09:51 Dose: 160 mg - Labs Labs: 01/16/17 05:00 01/16/17 05:00 PT 10.6 SECONDS (9.6-11.2) 01/13/17 16:15 INR 1.02 (0.92-1.08) 01/13/17 16:15 APTT 27.8 SECONDS (23.3-32.5) 01/13/17 16:15 - Constitutional Appears: Non-toxic, No Acute Distress, Other (obese) - Head Exam Head Exam: ATRAUMATIC, NORMAL INSPECTION, NORMOCEPHALIC - Eye Exam Eye Exam: EOMI, Normal appearance, PERRL Pupil Exam: NORMAL ACCOMODATION - ENT Exam ENT Exam: Mucous Membranes Moist, Normal Exam - Neck Exam Neck Exam: Full ROM, Normal Inspection - Respiratory Exam Respiratory Exam: Clear to Ausculation Bilateral, NORMAL BREATHING PATTERN. absent: Rales, Rhonchi, Wheezes - Cardiovascular Exam Cardiovascular Exam: REGULAR RHYTHM. absent: JVD - GI/Abdominal Exam GI & Abdominal Exam: Soft, Normal Bowel Sounds. absent: Distended, Guarding, Tenderness, Rebound - Rectal Exam Rectal Exam: Deferred - Extremities Exam Extremities Exam: Full ROM, Normal Capillary Refill, Normal Inspection. absent : Pedal Edema - Back Exam Back Exam: NORMAL INSPECTION - Neurological Exam Neurological Exam: Alert, Awake, CN II-XII Intact, Oriented x3 - Psychiatric Exam Psychiatric exam: Normal Affect - Skin Skin Exam: Dry, Normal Color, Warm Assessment and Plan - Assessment and Plan (Free Text) Assessment: 86 y/o lady with hx of HTN, Pancreatic Cyst, noncompliant with her medications , came in as advised by her PMD Dr Sharp, because of chest pressure , palpitation and SOB. EKG showed nonspecific ST T changes and Troponin was elevated . patient admitted with possible diagnosis of NSTEMi and cardiology was consulted that recommended medical management. formulation scientist showed aflutter with variable block and patient was started on amiodarone Po .At present doing well, SR ion monitor with HR 100. 1. NSTEMI (non-ST elevated myocardial infarction) Acute Troponins were elevated and now trending down 0.[address]- T changes on EKG Chest pain resolved cont ASA, Plavix, therapeutic dose of Lovenox, Statin, BB and ARB ECHO:normal wall motion and LV function, EF=60%, mild to mod AI,and MR Cardiology consulted - DR Chavez Discussed possible need for cardiac cath but patient refused any aggressive treatment and just wants medical treatment 2. AFlutter with variable block better controlled cardiology following Denies any CP, palpitations, SOB Continue amiodarone 200 mg po Qd and toprol on lovenox therapeutic 3. 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 Umbilical Hernia, chronic no abd pain nor tenderness 6. Prophylactic measure on LOvenox Pepcid
[2017-01-17 08:42] LABS: HEMATOCRIT 40.7 % (34.0-47.0); MEAN CORPUSCULAR HEMOGLOBIN 27.6 pg (27.0-31.0); MEAN CORPUSCULAR HGB CONC 33.3 g/dL (33.0-37.0); RED CELL DISTRIBUTION WIDTH 14.7 % (11.5-14.5); WHITE BLOOD COUNT 6.8 K/uL (4.8-10.8)
[2017-01-17 08:53] LABS: BLOOD UREA NITROGEN 18 mg/dl (7-17); CALCIUM 9.1 mg/dL (8.4-10.2); CARBON DIOXIDE 29 mmol/L (22-30); CHLORIDE 105 mmol/L (98-107); GFR AFRICAN-AMERICAN > 60; GLUCOSE,RANDOM 99 mg/dL (65-105); POTASSIUM 4.3 MMOL/L (3.6-5.0); SODIUM 143 mmol/l (132-148)
[2017-01-17] MEDS: Olopatadine 0.1% Opht SOLN OU SCH (09:30)
[2017-01-17] MEDS: Enoxaparin 80 mg Syringe SC SCH ×2 (09:30→21:38)
[2017-01-17] MEDS: Metoprolol Succinate 100 mg XL Tab PO SCH (09:31)
[2017-01-18 06:23] LABS: HEMATOCRIT 38.4 % (34.0-47.0); MEAN CELL VOLUME 83.7 fl (81.0-99.0); MEAN CORPUSCULAR HEMOGLOBIN 27.4 pg (27.0-31.0); MEAN CORPUSCULAR HGB CONC 32.7 g/dL (33.0-37.0); RED CELL DISTRIBUTION WIDTH 14.8 % (11.5-14.5); WHITE BLOOD COUNT 7.8 K/uL (4.8-10.8)
[2017-01-18 07:33] LABS: BLOOD UREA NITROGEN 19 mg/dl (7-17); CALCIUM 8.7 mg/dL (8.4-10.2); CARBON DIOXIDE 26 mmol/L (22-30); CHLORIDE 107 mmol/L (98-107); GFR AFRICAN-AMERICAN > 60; GLUCOSE,RANDOM 94 mg/dL (65-105); POTASSIUM 4.2 MMOL/L (3.6-5.0); SODIUM 140 mmol/l (132-148)
[2017-01-18 07:54] VITALS: RESP 18
[2017-01-18] MEDS: Enoxaparin 80 mg Syringe SC SCH (08:23)
[2017-01-18] MEDS: Metoprolol Succinate 100 mg XL Tab PO SCH (08:24)
[2017-01-18] MEDS: Olopatadine 0.1% Opht SOLN OU SCH (08:25)
--- NOTE | 2017-01-18 10:56 | CP.PCM.DIS ---
Provider - Provider Date of Admission: 01/13/17 21:29 Attending physician: Tarah Jacome DO Primary care physician: Willem Sharp MD Consults: cardiology consult PT consult Time Spent in preparation of Discharge (in minutes): 20 Hospital Course - Lab Results Lab Results: Most Recent Lab Values WBC 7.8 K/uL (4.8-10.8) 01/18/17 05:20 RBC 4.59 Mil/uL (3.80-5.20) 01/18/17 05:20 Hgb 12.6 g/dL (12.0-16.0) 01/18/17 05:20 Hct 38.4 % (34.0-47.0) 01/18/17 05:20 MCV 83.7 fl (81.0-99.0) 01/18/17 05:20 MCH 27.4 pg (27.0-31.0) 01/18/17 05:20 MCHC 32.7 g/dL (33.0-37.0) L 01/18/17 05:20 RDW 14.8 % (11.5-14.5) H 01/18/17 05:20 Plt Count 145 K/uL (130-400) 01/18/17 05:20 MPV 10.2 fl (7.2-11.7) 01/13/17 16:15 Neut % (Auto) 61.4 % (50.0-75.0) 01/13/17 16:15 Lymph % (Auto) 23.3 % (20.0-40.0) 01/13/17 16:15 [place] % (Auto) 8.4 % (0.0-10.0) 01/13/17 16:15 Eos % (Auto) 6.4 % (0.0-4.0) H 01/13/17 16:15 Baso % (Auto) 0.5 % (0.0-2.0) 01/13/17 16:15 Neut # 5.3 K/uL (1.8-7.0) 01/13/17 16:15 Lymph # 2.0 K/uL (1.0-4.3) 01/13/17 16:15 [place] # 0.7 K/uL (0.0-0.8) 01/13/17 16:15 Eos # 0.6 K/uL (0.0-0.7) 01/13/17 16:15 Baso # 0.0 K/uL (0.0-0.2) 01/13/17 16:15 PT 10.6 SECONDS (9.6-11.2) 01/13/17 16:15 INR 1.02 (0.92-1.08) 01/13/17 16:15 APTT 27.8 SECONDS (23.3-32.5) 01/13/17 16:15 D-Dimer, Quantitative 1.36 mg/L FEU (0-0.50) H 01/13/17 16:15 Sodium 140 mmol/l (132-148) 01/18/17 05:15 Potassium 4.2 MMOL/L (3.6-5.0) 01/18/17 05:15 Chloride 107 mmol/L (98-107) 01/18/17 05:15 Carbon Dioxide 26 mmol/L (22-30) 01/18/17 05:15 Anion Gap 11 (10-20) 01/18/17 05:15 BUN 19 mg/dl (7-17) H 01/18/17 05:15 Creatinine 0.8 mg/dL (0.7-1.2) 01/18/17 05:15 Est GFR ( Amer) > 60 01/18/17 05:15 Est GFR (Non-Af Amer) > 60 01/18/17 05:15 POC Glucose (mg/dL) 100 mg/dL (65-110) 01/17/17 20:59 Random Glucose 94 mg/dL (65-105) 01/18/17 05:15 Lactic Acid 0.9 MMOL/L (0.7-2.1) 01/13/17 16:15 Calcium 8.7 mg/dL (8.4-10.2) 01/18/17 05:15 Phosphorus 3.5 mg/dl (2.5-4.5) 01/13/17 16:15 Magnesium 1.9 MG/DL (1.6-2.3) 01/13/17 16:15 Total Bilirubin 0.6 mg/dl (0.2-1.3) 01/13/17 16:15 AST 29 U/L (14-36) 01/13/17 16:15 ALT 29 U/L (9-52) 01/13/17 16:15 Alkaline Phosphatase 116 U/L (38-126) 01/13/17 16:15 Troponin I 0.0960 ng/mL (0.00-0.120) 01/17/17 08:30 NT-Pro-B Natriuret Pep 1060 pg/ml (0-900) H 01/13/17 16:15 Total Protein 6.8 G/DL (6.3-8.2) 01/13/17 16:15 Albumin 3.5 g/dL (3.5-5.0) 01/13/17 16:15 Globulin 3.4 gm/dL (2.2-3.9) 01/13/17 16:15 Albumin/Globulin Ratio 1.0 (1.0-2.1) 01/13/17 16:15 Triglycerides 108 mg/DL (0-149) 01/14/17 05:55 Cholesterol 151 mg/dL (0-199) 01/14/17 05:55 LDL Cholesterol Direct 80 mg/dL (0-129) 01/14/17 05:55 HDL Cholesterol 44 MG/DL (30-70) 01/14/17 05:55 TSH 3rd Generation 2.65 mIU/ML (0.46-4.68) 01/13/17 16:15 - Hospital Course Hospital Course: 86 y/o lady with hx of HTN, Pancreatic Cyst, noncompliant with her medications , came in as advised by her PMD Dr Berry, because of chest pressure , palpitation and SOB. EKG showed nonspecific ST T changes and Troponin was elevated . Patient admitted with possible diagnosis of NSTEMi and cardiology was consulted that recommended medical management. site monitor showed aflutter with variable block and patient was started on amiodarone Po .At present doing well, SR on monitor. Most likely troponin elevation related to Aflutter. Started on Amiodaron eand metoprolol for rate and rhythm control and Eliquis for stroke prevention . At present hemodybnamically stable. Will discharge home . Follow up with Dr. Lopez in 1 week 1. NSTEMI (non-ST elevated myocardial infarction)-- most likely troponin elevation related to Aflutter and patient did not have a real ischemic event Troponins were elevated and now trending down 0.[address]- T changes on EKG Chest pain resolved Received ASA, Plavix, therapeutic dose of Lovenox, Statin, BB and ARB during this admission ECHO:normal wall motion and LV function, EF=60%, mild to mod AI,and MR Cardiology consulted - DR Chavez Discussed possible need for cardiac cath but patient refused any aggressive treatment and just wants medical treatment Will d/c ASa, Plavix and start Eliquis since patient has Aflutter Continue metoprolol 2. AFlutter with variable block rate controlled cardiology consulted Denies any CP, palpitations, SOB Started amiodarone 200 mg po Qd and toprol Start Eliquis as out patient 3. 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 Umbilical Hernia, chronic no abd pain nor tenderness 6. Prophylactic measure received LOvenox while in hospital Pepcid Discharge Exam - Head Exam Head Exam: ATRAUMATIC, NORMAL INSPECTION, NORMOCEPHALIC - Eye Exam Eye Exam: EOMI, Normal appearance, PERRL Pupil Exam: NORMAL ACCOMODATION - ENT Exam ENT Exam: Mucous Membranes Moist, Normal Exam - Neck Exam Neck exam: Full Rom, Normal Inspection - Respiratory Exam Respiratory Exam: Clear to PA & Lateral, NORMAL BREATHING PATTERN. absent: Rales, Rhonchi, Wheezes - Cardiovascular Exam Cardiovascular Exam: Irregular Rhythm, +S1, +S2. absent: JVD - GI/Abdominal Exam GI & Abdominal Exam: Normal Bowel Sounds, Soft. absent: Guarding, Rebound, Tenderness Additional comments: umbilical hernia - Rectal Exam Rectal Exam: Deferred - Extremities Exam Extremities exam: normal capillary refill, normal inspection, pedal pulses present - Back Exam Back exam: NORMAL INSPECTION - Neurological Exam Neurological exam: Alert, CN II-XII Intact, Oriented x3 - Psychiatric Exam Psychiatric exam: Normal Affect, Normal Mood - Skin Skin Exam: Dry, Intact, Normal Color, Warm Discharge Plan - Discharge Medications Prescriptions: Apixaban [Eliquis] 2.5 mg PO BID #60 tablet Atorvastatin [Lipitor] 20 mg PO DAILY #30 tab Metoprolol Succinate [Toprol XL] 100 mg PO DAILY #30 tab Valsartan [Diovan] 160 mg PO DAILY #30 - Follow Up Plan Condition: IMPROVED Disposition: HOME/ ROUTINE Patient education suggested?: Yes Instructions: Acute Coronary Syndrome (DC), Atrial Tachycardia (DC) Referrals: Willem Sharp MD [Primary Care Provider] -
[2017-01-18 12:02] VITALS: BP 126/85; PULSE 102; TEMP 98; O2SAT 97
--- NOTE | 2017-01-19 15:22 | PQF CHF ---
Dr. Chavez pt is admitted with a history of congestive heart failure. If known what type? This form is a permanent part of the medical record Clarification of your documentation is requested to better reflect the severity of illness and intensity of treatment of your patient. Indicators present [x] Diagnosis of CHF and/or history of CHF [] BNP > 200 [] Imaging Finding of Pulmonary Edema /Pleural Effusions [] Fluid/Volume Overload [] Pitting edema [] Ejection Fraction < 40% (Indicative of Systolic Heart Failure) [] Ejection Fraction > 40% (Indicative of Diastolic Heart Failure) [] Dyspnea / Orthopenea / Paroxysmal Nocturnal Dyspnea [] Other: Location in the medical record that reflects the above clinical findings: [] Treatment Provided: [] PHYSICIAN'S RESPONSE Based on your medical judgment of the clinical indicators outlined above, are you treating this patient for a known or suspected: [] Acute CHF [] Systolic [] Diastolic [] Combined [] Chronic CHF [] Systolic [] Diastolic [] Combined [] Acute on Chronic CHF []Systolic [] Diastolic [] Combined [] CHF due hypertension [] Acute systolic []Chronic systolic [] Acute/ chronic systolic [] Other, please indicate: [] [] If Unable to Determine, please check the box, sign and date. Present On Admission (POA) Indicator: [] Present at the time of admission [] Not present at the time of admission [] Clinically Undetermined In responding to this query, please exercise your independent professional judgment. The fact that a question is asked does not imply that any particular answer is desired or expected. Thank you for your clarification on this documentation. If you have any questions please call:[ ] * Thank you, [ ]Carline Encarnacion warp dyeing tender PAUL
== END 2017-01-18 11:00 | disposition home health service (06) | DRG 310 ==
LOC: H.ER 15:00 → H.ERHOLD 21:29 → H.TEL 01-14 00:44
PROVIDERS: ADMIT Student in an Organized Health Care Education/Training Program; ATTEND Student in an Organized Health Care Education/Training Program
DX: I48.92 Unspecified atrial flutter (principal); J44.9 Chronic obstructive pulmonary disease, unspecified; F03.90 Unspecified dementia, unspecified severity, without behavioral disturbance, psychotic disturbance, mood disturbance, and anxiety; E78.5 Hyperlipidemia, unspecified; I73.9 Peripheral vascular disease, unspecified; K42.9 Umbilical hernia without obstruction or gangrene; Z86.73 Personal history of transient ischemic attack (TIA), and cerebral infarction without residual deficits; Z91.14 Patient's other noncompliance with medication regimen; K86.9 Disease of pancreas, unspecified; I25.10 Atherosclerotic heart disease of native coronary artery without angina pectoris; I48.91 Unspecified atrial fibrillation; J45.909 Unspecified asthma, uncomplicated; Z66 Do not resuscitate; F41.9 Anxiety disorder, unspecified; Z88.0 Allergy status to penicillin; F32.9 Major depressive disorder, single episode, unspecified; I35.1 Nonrheumatic aortic (valve) insufficiency; Z53.29 Procedure and treatment not carried out because of patient's decision for other reasons; I10 Essential (primary) hypertension